=== PATIENT | female | born 1955 | race Caucasian/White ===

== ENCOUNTER 2023-07-15 08:58 | Observation (INO) | payer MEDICARE, BC ==
[2023-07-11 16:32] LABS: BASOPHILS % (AUTO) 0.6 % (0-1); EOSINOPHILS % (AUTO) 0.2 % (0-6); LYMPHOCYTES # (AUTO) 0.6 X10'3 (1.1-4.8); LYMPHOCYTES % (AUTO) 14.9 % (21-51); MEAN CORPUSCULAR HEMOGLOBIN 33.1 PG (27.0-31.0); MEAN CORPUSCULAR HGB CONC 33.6 g/dL (33.0-36.5); MEAN CORPUSCULAR VOLUME 98.6 FL (78-98); MEAN PLATELET VOLUME 7.5 FL (7.4-10.4); MONOCYTES # (AUTO) 0.6 X10'3 (0-0.9); NEUTROPHILS % (AUTO) 69.3 % (42-75); PRE OP HEMATOCRIT 46.3 % (35.0-45.0); PRE OP HEMOGLOBIN 15.5 g/dL (12.0-16.0); PRE OP PLATELET COUNT 202 X10'3 (140-440); PRE OP WHITE BLOOD COUNT 4.3 10'3 (4.8-10.8); RED BLOOD COUNT 4.69 X10'6 (4.20-5.60); RED CELL DISTRIBUTION WIDTH 12.6 % (11.5-14.5)
[2023-07-11 16:41] LABS: PRE OP PROTIME 10.5 SECONDS (9.0-12.0)
[2023-07-11 16:50] LABS: ALBUMIN 3.6 G/DL (3.4-5.0); ALBUMIN/GLOBULIN RATIO 0.9 (1.1-1.5); ALKALINE PHOSPHATASE 68 IU/L (46-116); BLOOD UREA NITROGEN 18 MG/DL (7-18); CALCIUM 9.3 MG/DL (8.5-10.1); CHLORIDE 106 MMOL/L (99-107); PRE OP ALT 22 U/L (30-65); PRE OP ANION GAP 4 (8-16); PRE OP AST 20 U/L (10-37); PRE OP BILIRUB, TOTAL 0.6 MG/DL (0.0-1.0); PRE OP GLUCOSE 96 MG/DL (70-104); PRE OP POTASSIUM 4.2 MMOL/L (3.4-5.1); PRE OP SODIUM 141 MMOL/L (135-145); THYROID STIMULATING HORMONE 0.13 ulU/ml (0.34-4.50); TOTAL CARBON DIOXIDE 30.8 MMOL/L (24-32); TOTAL PROTEIN 7.5 G/DL (6.4-8.2); eGFR 62 ML/MIN
[2023-07-11 21:15] LABS: TOTAL CELLS COUNTED 100
[2023-07-11 21:16] LABS: PLATELET ESTIMATE NORMAL
[2023-07-15] VITALS (24 sets, daily range): BP systolic 107–134; BP diastolic 51–83; PULSE 74–92; RESP 12–20; TEMP 97–97.9; O2SAT 94–99
[~2023-07-15] VITALS: Ht 162.6 cm; Wt 66.6 kg
[~2023-07-15 08:58] MED LIST: ALBU8HFA INH; AMLO5TAB16 PO; LORA10CA PO; LOSA50TA64 PO; MONT-40 PO; THYR120T2 PO; albuterol 2.5 MG/3 ML nebule NEB ONE
[2023-07-15] MEDS: famotidine 20mg tablet PO ONE (10:56)
[2023-07-15] MEDS: ringers solution, lacted 1,000 ML IV SCH ×3 (10:57→15:25)
[2023-07-15] MEDS ORDERED: BUPIVAcaine 2.5mg/ml inj 50ml vial (contains preservative) ONE (11:35)
[2023-07-15] MEDS ORDERED: methylene blue (5mg/ml) 50mg/10ml ampul IV ONE (11:35)
[2023-07-15] MEDS ORDERED: BUPIVACAINE liposomal/PF 13.3 MG/ML vial IM ONE (11:52)
[2023-07-15] MEDS ORDERED: BUPIVAcaine/PF 5 mg/ml 10ml ONE (11:52)
[2023-07-15] MEDS ORDERED: midazolam 1 mg/ML 2ml injection ONE (12:30)
[2023-07-15] MEDS ORDERED: dexamethasone sod phosphate 4mg/ml inj. ONE (12:30)
[2023-07-15] MEDS ORDERED: sevoflurane 250ml liquid IH ONE (12:30)
[2023-07-15] MEDS ORDERED: ondansetron/PF 4mg/2ml inj ONE (12:30)
[2023-07-15] MEDS ORDERED: fentaNYL/PF 50MCG/1 ML 2ML syringe ONE ×2 (12:30→13:42)
[2023-07-15] MEDS ORDERED: propofol inj 20 ML IV ONE (12:30)
[2023-07-15] MEDS ORDERED: acetaminophen 1,000mg/100ml IV 100 ML IV ONE (12:30)
[2023-07-15] MEDS: cefazolin 2gm/D5W 100mL 100 ML IV ONE (12:45)
[2023-07-15] MEDS ORDERED: ePHEDrine 50MG/ML INJ. ONE (13:03)
[2023-07-15] MEDS ORDERED: fentaNYL/PF 50MCG/1 ML 2ML syringe IV PRN ×2 (13:15)
[2023-07-15] MEDS ORDERED: morphine 4 MG/ML inj SYRINge IV PRN (13:15)
[2023-07-15] MEDS ORDERED: ondansetron/PF 4mg/2ml inj IV PRN ×2 (13:15→16:20)
[2023-07-15] MEDS ORDERED: morphine 2 MG/ML inj. syringe IV PRN ×2 (13:15→16:20)
[2023-07-15] MEDS ORDERED: hydrALAZINE 20mg/ml inj. IV PRN (13:15)
[2023-07-15] MEDS ORDERED: labetalol 20mg/4ml (5mg/ml) syringe IV PRN (13:15)
[2023-07-15] MEDS: methylene blue (5mg/ml) 50mg/10ml ampul IV ONE (13:17)
[2023-07-15] MEDS ORDERED: HYDROcodone/acetaminophen 5mg/325mg tablet PO PRN (16:20)
[2023-07-15] MEDS: ceFAZolin/D5W- 1GM premix 50 ML IV SCH (23:46)
[2023-07-16] MEDS ORDERED: albuterol 2.5 MG/3 ML nebule NEB PRN (00:35)
[2023-07-16 02:00] VITALS: BP 103/53; PULSE 76; RESP 14; TEMP 96; O2SAT 98
[2023-07-16 06:00] VITALS: BP 120/62; PULSE 72; RESP 15; TEMP 96.9; O2SAT 98
[2023-07-16] MEDS: montelukast 10mg tablet PO SCH (08:00)
[2023-07-16 10:00] VITALS: BP 124/50; PULSE 79; RESP 16; TEMP 97.4; O2SAT 97
[2023-07-16] MEDS: thyroid, pork 30mg tablet PO SCH (10:36)
[2023-07-16] MEDS: losartan 50mg tablet PO SCH (10:36)
[2023-07-16 10:37] VITALS: BP_SYST 124; PULSE 79
[2023-07-16] MEDS: amLODIPine 5mg tablet PO SCH (10:37)
== END 2023-07-16 13:00 | disposition home or self-care (01) ==
LOC: PAS 08:58 → ORTHO 4S 15:23 → UNDOADMOB 15:23 → ORTHO 4S 15:35
PROVIDERS: ADMIT Surgery; ATTEND Surgery
DX: D05.12 Intraductal carcinoma in situ of left breast (principal); Z79.899 Other long term (current) drug therapy
CPT/HCPCS: 19303; 36415; 38525; 38900; 80053; 82948; 84443; 85007; 85025; 85610; 85730; 86885; 86900; 86901; 87081; 93005; 96365; 96366; C9290; G0378; J0131; J0665; J0690; J1100; J2250; J2405; J2704; J3010; J3490; J7120; Q9968; 88307; 88342; A4215; A4615; A4618; A6253; A6258; A6449; A7000; C9250